=== PATIENT | female | born 1955 | race African-American/Black ===

== ENCOUNTER 2021-09-02 09:36 | Outpatient (CLI) | payer BC | END 2021-09-02 09:37 | disposition home or self-care (01) | LOC: RAD-FRANK 09:36 | PROVIDERS: ATTEND Nurse Practitioner Family | DX: M79.672 Pain in left foot (principal) ==

== ENCOUNTER 2021-10-22 16:07 | Outpatient (CLI) | payer BC | END 2021-10-22 16:08 | disposition home or self-care (01) | LOC: RAD-FRANK 16:07 | PROVIDERS: ATTEND Nurse Practitioner Family | DX: S39.012D Strain of muscle, fascia and tendon of lower back, subsequent encounter (principal); M47.816 Spondylosis without myelopathy or radiculopathy, lumbar region; M43.16 Spondylolisthesis, lumbar region | CPT/HCPCS: 72100 ==